=== PATIENT | male | born 1950 | race Caucasian/White ===

== ENCOUNTER 2018-04-21 16:26 | Emergency (ER) | payer BC, MEDICARE ==
[2018-04-21 16:31] VITALS: TEMP 97.4
[2018-04-21] MEDS ORDERED: SODIUM CHLORIDE 0.9% 500 ML 500 ML IV STA (16:42)
[2018-04-21] MEDS ORDERED: SODIUM CHLORIDE 0.9% 1,000 ML IV STA (16:42)
--- NOTE | 2018-04-21 17:09 | XR ---
EXAMINATION TYPE: XR chest 2V DATE OF EXAM: 04/21/2018 COMPARISON: NONE HISTORY: Dizziness weakness TECHNIQUE: Frontal and lateral views of the chest are obtained. FINDINGS: There is poor inspiration. Lungs are clear of infiltrate. Costophrenic angles are clear. H eart and mediastinum are within normal limits. Bony thorax is intact. IMPRESSION: No active cardiopulmonary disease.
[2018-04-21 17:16] LABS: Basophils % (A) 1 %; Eosinophils # (A) 0.1 k/uL (0-0.7); Eosinophils % (A) 3 %; HGB 14.5 gm/dL (13.0-17.5); Lymphocytes # (A) 1.9 k/uL (1.0-4.8); Lymphocytes % (A) 34 %; MCH 29.6 pg (25.0-35.0); MCHC 32.3 g/dL (31.0-37.0); MCV 91.7 fL (80.0-100.0); Mean Platelet Volume 6.8; Monocytes # (A) 0.4 k/uL (0-1.0); Monocytes % (A) 7 %; Neutrophils # (A) 2.9 k/uL (1.3-7.7); Neutrophils % (A) 53 %; Platelet Count 198 k/uL (150-450); RBC 4.91 m/uL (4.30-5.90); RDW 12.9 % (11.5-15.5); WBC 5.5 k/uL (3.8-10.6)
[2018-04-21 17:23] LABS: Albumin 4.3 g/dL (3.5-5.0); Calcium 9.1 mg/dL (8.4-10.2); Magnesium 1.7 mg/dL (1.6-2.3); Phosphorus 3.2 mg/dL (2.5-4.5); Potassium 4.5 mmol/L (3.5-5.1); Total Bilirubin 0.5 mg/dL (0.2-1.3); Total Protein 7.8 g/dL (6.3-8.2)
[2018-04-21 17:36] LABS: Creatine Kinase 206 U/L (55-170)
[2018-04-21 17:48] LABS: Creatine Kinase MB 2.9 ng/mL (0.0-2.4); Troponin I <0.012 ng/mL (0.000-0.034)
[2018-04-21 17:52] LABS: INR 1.1 (<1.2); Partial Thromboplastin Time 24.1 sec (22.0-30.0); Prothrombin Time 10.5 sec (9.0-12.0)
[2018-04-21 18:13] LABS: Appearance,Urine Clear (Clear); Bilirubin,Urine Negative (Negative); Blood,Urine Negative (Negative); Color,Urine Light Yellow; Glucose,Urine (UA) Negative (Negative); Ketones,Urine Negative (Negative); Leukocyte Esterase,Urine Negative (Negative); Nitrite,Urine Negative (Negative); Protein,Urine Negative (Negative); Specific Gravity,Urine 1.009 (1.001-1.035); Urobilinogen,Urine <2.0 mg/dL (<2.0)
--- NOTE | 2018-04-21 18:21 | ED ---
Dizziness HPI - General Chief Complaint: Dizziness Stated Complaint: dizziness Time Seen by Provider: 04/21/18 16:32 Source: patient, EMS Mode of arrival: EMS Limitations: no limitations - History of Present Illness Initial Comments: This is a 67-year-old male to the ER for evaluation. Patient presents today with vertiginous symptoms. Patient has dizziness with position change started today. No recent similar issues, no headaches. No head trauma. No fevers. Patient denies any hearing loss or pain. Patient does admit to significant dizziness when walking as well. Symptoms seem to be 3 sudden onset, no nausea or vomiting. Prior history of heart disease no prior history of CVA MD Complaint: dizziness, other (Vertigo) -: days(s) (1) Timing: sudden onset Description: sense of movement, "room spinning", off-balance, difficulty walking History of Same: No History of Trauma: No Severity: moderate Improves With: remaining still Worsens With: position Associated Symptoms: denies other symptoms - Related Data Home Medications Medication Instructions Recorded Confirmed Aspirin EC [Ecotrin Low Dose] 81 mg PO DAILY 04/21/18 04/21/18 Omeprazole [PriLOSEC] 20 mg PO DAILY 04/21/18 04/21/18 Tamsulosin HCl [Flomax] 0.4 mg PO BID 04/21/18 04/21/18 Triamcinolone Acetonide [Nasacort] 1 - 2 spray EA NOSTRIL BID PRN 04/21/1804/21 diphenhydrAMINE HCL [Benadryl] 25 - 50 mg PO Q6H PRN 04/21/18 04/21/18 Allergies Allergy/AdvReac Type Severity Reaction Status Date / Time No Known Allergies Allergy Verified 04/21/18 16:58 Review of Systems ROS Statement: Those systems with pertinent positive or pertinent negative responses have been documented in the HPI. ROS Other: All systems not noted in ROS Statement are negative. Past Medical History Past Medical History: Cancer Additional Past Medical History / Comment(s): colorectal cancer jun 2014, History of Any Multi-Drug Resistant Organisms: None Reported Additional Past Surgical History / Comment(s): rectal tumor removed, colostomy Past Psychological History: No Psychological Hx Reported Smoking Status: Former smoker Past Alcohol Use History: Daily Past Drug Use History: None Reported General Exam - General Exam Comments Initial Comments: NIH of 0, finger-nose and heel mayo are negative Limitations: no limitations General appearance: alert, in no apparent distress Head exam: Present: atraumatic, normocephalic, normal inspection Eye exam: Present: normal appearance, PERRL, EOMI. Absent: scleral icterus, conjunctival injection, periorbital swelling ENT exam: Present: normal exam, mucous membranes moist Neck exam: Present: normal inspection. Absent: tenderness, meningismus, lymphadenopathy Respiratory exam: Present: normal lung sounds bilaterally. Absent: respiratory distress, wheezes, rales, rhonchi, stridor Cardiovascular Exam: Present: regular rate, normal rhythm, normal heart sounds. Absent: systolic murmur, diastolic murmur, rubs, gallop, clicks GI/Abdominal exam: Present: soft, normal bowel sounds. Absent: distended, tenderness, guarding, rebound, rigid Extremities exam: Present: normal inspection, full ROM, normal capillary refill. Absent: tenderness, pedal edema, joint swelling, calf tenderness Back exam: Present: normal inspection Neurological exam: Present: alert, oriented X3, CN II-XII intact Psychiatric exam: Present: normal affect, normal mood Skin exam: Present: warm, dry, intact, normal color. Absent: rash Course Vital Signs 04/21/18 04/21/18 16:27 18:46 Temperature 97.4 F L Pulse Rate 70 68 Respiratory 20 18 Rate Blood Pressure 154/71 144/69 O2 Sat by Pulse 96 97 Oximetry - Reevaluation(s) Reevaluation #1: 04/21/18 19:16 Medical records thoroughly reviewed Reevaluation #2: 04/21/18 19:16 Patient is able to actively without ataxia EKG Findings - EKG Comments: EKG Findings:: EKG shows sinus rhythm rate of 63, VT 160, QRS 90, QTc 411 Medical Decision Making - Medical Decision Making 67 male the ER for evaluation of difficulty with dizziness, room spinning and vertigo symptoms. No ataxia, currently. CT is negative patient can be discharged home - Lab Data Result diagrams: 04/21/18 16:40 04/21/18 16:40 Lab Results 04/21/18 04/21/18 04/21/18 Range/Units 16:40 16:40 16:40 WBC 5.5 (3.8-10.6) k/uL RBC 4.91 (4.30-5.90) m/uL Hgb 14.5 (13.0-17.5) gm/dL Hct 45.0 (39.0-53.0) % MCV 91.7 (80.0-100.0) fL MCH 29.6 (25.0-35.0) pg MCHC 32.3 (31.0-37.0) g/dL RDW 12.9 (11.5-15.5) % Plt Count 198 (150-450) k/uL Neutrophils % 53 % Lymphocytes % 34 % Monocytes % 7 % Eosinophils % 3 % Basophils % 1 % Neutrophils # 2.9 (1.3-7.7) k/uL Lymphocytes # 1.9 (1.0-4.8) k/uL Monocytes # 0.4 (0-1.0) k/uL Eosinophils # 0.1 (0-0.7) k/uL Basophils # 0.0 (0-0.2) k/uL PT (9.0-12.0) sec INR (<1.2) APTT (22.0-30.0) sec Sodium 138 (137-145) mmol/L Potassium 4.5 (3.5-5.1) mmol/L Chloride 105 (98-107) mmol/L Carbon Dioxide 22 (22-30) mmol/L Anion Gap 11 mmol/L BUN 24 H (9-20) mg/dL Creatinine 1.17 (0.66-1.25) mg/dL Est GFR (CKD-EPI)AfAm 73 (>60 ml/min/1.73 sqM) Est GFR (CKD-EPI)NonAf 63 (>60 ml/min/1.73 sqM) Glucose 101 H (74-99) mg/dL Calcium 9.1 (8.4-10.2) mg/dL Phosphorus 3.2 (2.5-4.5) mg/dL Magnesium 1.7 (1.6-2.3) mg/dL Total Bilirubin 0.5 (0.2-1.3) mg/dL AST 32 (17-59) U/L ALT 28 (21-72) U/L Alkaline Phosphatase 71 (38-126) U/L Total Creatine Kinase 206 H (55-170) U/L CK-MB (CK-2) 2.9 H (0.0-2.4) ng/mL CK-MB (CK-2) Rel Index 1.4 Troponin I <0.012 (0.000-0.034) ng/mL Total Protein 7.8 (6.3-8.2) g/dL Albumin 4.3 (3.5-5.0) g/dL Urine Color Urine Appearance (Clear) Urine pH (5.0-8.0) Ur Specific [place] (1.001-1.035) Urine Protein (Negative) Urine Glucose (UA) (Negative) Urine Ketones (Negative) Urine Blood (Negative) Urine Nitrite (Negative) Urine Bilirubin (Negative) Urine Urobilinogen (<2.0) mg/dL Ur Leukocyte Esterase (Negative) 04/21/18 04/21/18 Range/Units 16:40 17:47 WBC (3.8-10.6) k/uL RBC (4.30-5.90) m/uL Hgb (13.0-17.5) gm/dL Hct (39.0-53.0) % MCV (80.0-100.0) fL MCH (25.0-35.0) pg MCHC (31.0-37.0) g/dL RDW (11.5-15.5) % Plt Count (150-450) k/uL Neutrophils % % Lymphocytes % % Monocytes % % Eosinophils % % Basophils % % Neutrophils # (1.3-7.7) k/uL Lymphocytes # (1.0-4.8) k/uL Monocytes # (0-1.0) k/uL Eosinophils # (0-0.7) k/uL Basophils # (0-0.2) k/uL PT 10.5 (9.0-12.0) sec INR 1.1 (<1.2) APTT 24.1 (22.0-30.0) sec Sodium (137-145) mmol/L Potassium (3.5-5.1) mmol/L Chloride (98-107) mmol/L Carbon Dioxide (22-30) mmol/L Anion Gap mmol/L BUN (9-20) mg/dL Creatinine (0.66-1.25) mg/dL Est GFR (CKD-EPI)AfAm (>60 ml/min/1.73 sqM) Est GFR (CKD-EPI)NonAf (>60 ml/min/1.73 sqM) Glucose (74-99) mg/dL Calcium (8.4-10.2) mg/dL Phosphorus (2.5-4.5) mg/dL Magnesium (1.6-2.3) mg/dL Total Bilirubin (0.2-1.3) mg/dL AST (17-59) U/L ALT (21-72) U/L Alkaline Phosphatase (38-126) U/L Total Creatine Kinase (55-170) U/L CK-MB (CK-2) (0.0-2.4) ng/mL CK-MB (CK-2) Rel Index Troponin I (0.000-0.034) ng/mL Total Protein (6.3-8.2) g/dL Albumin (3.5-5.0) g/dL Urine Color Light Yellow Urine Appearance Clear (Clear) Urine pH 5.0 (5.0-8.0) Ur Specific [place] 1.009 (1.001-1.035) Urine Protein Negative (Negative) Urine Glucose (UA) Negative (Negative) Urine Ketones Negative (Negative) Urine Blood Negative (Negative) Urine Nitrite Negative (Negative) Urine Bilirubin Negative (Negative) Urine Urobilinogen <2.0 (<2.0) mg/dL Ur Leukocyte Esterase Negative (Negative) - Radiology Data Radiology results: report reviewed (CT brain chest x-ray are negative for acute disease), image reviewed Disposition Clinical Impression: Benign paroxysmal positional vertigo Disposition: HOME SELF-CARE Condition: Good Instructions: Vertigo (ED) Is patient prescribed a controlled substance at d/c from ED?: No Referrals: Justin Vincent DO [Primary Care Provider] - 1-2 days
[2018-04-21 18:47] VITALS: RESP 18
--- NOTE | 2018-04-21 19:14 | CT ---
EXAMINATION TYPE: CT brain wo con DATE OF EXAM: 04/21/2018 COMPARISON: None HISTORY: Dizziness. CT DLP: 1082.10 mGycm Automated exposure control for dose reduction was used. FINDINGS: There is some cerebral cortical atrophy. There is no mass effect nor midline shift. There is no sign of intracranial hemorrhage. The calvarium is intact. IMPRESSION: MILD ATROPHY. NO ACUTE INTRACRANIAL ABNORMALITY.
[2018-04-21 20:12] VITALS: BP 150/70; PULSE 82
== END 2018-04-21 20:05 | disposition home or self-care (01) ==
LOC: EC 16:26
DX: H81.10 Benign paroxysmal vertigo, unspecified ear (principal); R29.700 NIHSS score 0; Z87.891 Personal history of nicotine dependence; Z79.82 Long term (current) use of aspirin; Z79.899 Other long term (current) drug therapy; Z85.038 Personal history of other malignant neoplasm of large intestine; Z85.048 Personal history of other malignant neoplasm of rectum, rectosigmoid junction, and anus; Z98.890 Other specified postprocedural states; Z93.3 Colostomy status
CPT/HCPCS: 36415; 70450; 71046; 80053; 81003; 82550; 82553; 83735; 84100; 84484; 85025; 85610; 85730; 87086; 93005; 96360; 96361; 99285

== ENCOUNTER → 2018-05-12 | Outpatient (CLI) | payer MEDICARE | END | disposition home or self-care (01) | LOC: LABWHC1 16:39 | PROVIDERS: ATTEND Family Medicine | DX: M79.662 Pain in left lower leg (principal); M79.661 Pain in right lower leg; R51 Headache | CPT/HCPCS: 36415; 85379 ==

== ENCOUNTER → 2018-05-27 | Outpatient (CLI) | payer MEDICARE ==
--- NOTE | 2018-05-27 13:55 | MR ---
EXAMINATION TYPE: MR brain wo con DATE OF EXAM: 05/27/2018 7:16 AM COMPARISON: NONE HISTORY: Headache FINDINGS: The ventricles, basal cisterns and sulci overlying the cerebral convexities are mildly enlarged. There is evidence of mild periventricular white matter ischemic demyelination. Remote deep white matter insults are also noted. No acute edema is seen on diffusion weighted imaging. There is no evidence for midline shift or mass effect. Acute intracranial hemorrhage or extra-axial collection is not evident. The paranasal sinuses and mastoid air cells are well-aerated. IMPRESSION: Age-related atrophic and chronic small vessel ischemic change. No acute intracranial process at this time.
== END | disposition home or self-care (01) ==
LOC: RADMRIMAIN 06:48
PROVIDERS: ATTEND Family Medicine
DX: I67.82 Cerebral ischemia (principal); G31.9 Degenerative disease of nervous system, unspecified
CPT/HCPCS: 70551

== ENCOUNTER 2020-01-16 18:15 | Emergency (ER) | payer MEDICARE ==
[2020-01-16 18:19] VITALS: RESP 16; TEMP 98.3
[2020-01-16] MEDS ORDERED: LIDOCAINE URO-JET JELLY 2% 5 ML KIT URETHRAL ONE ×2 (18:39→19:03)
--- NOTE | 2020-01-16 18:39 | ED ---
Male Urogenital HPI - General Chief complaint: Urogenital Stated complaint: Unable to void Time Seen by Provider: 01/16/20 18:22 Source: patient, RN notes reviewed Mode of arrival: ambulatory Limitations: no limitations - History of Present Illness Initial comments: This is a 69-year-old male who presents with complaints of inability to urinate. He states she's been having trouble for last day or so. He does complain some penile pain. She has frequency swallowing blood in his urine no fevers chills sweats no history kidney stones a history of prostatism does have a history of colon cancer with resection and colostomy. He also states he does have an appointment to see a urologist in 3 days. Additionally the patient does state that he had a muscle flap taken from the left leg over to the left buttock area. - Related Data Home Medications Medication Instructions Recorded Confirmed Aspirin EC [Ecotrin Low Dose] 81 mg PO DAILY 04/21/18 01/16/20 Allergies Allergy/AdvReac Type Severity Reaction Status Date / Time No Known Allergies Allergy Verified 01/16/20 20:46 Review of Systems ROS Statement: Those systems with pertinent positive or pertinent negative responses have been documented in the HPI. ROS Other: All systems not noted in ROS Statement are negative. Past Medical History Past Medical History: Cancer Additional Past Medical History / Comment(s): colorectal cancer jun 2014, History of Any Multi-Drug Resistant Organisms: None Reported Additional Past Surgical History / Comment(s): rectal tumor removed, colostomy Past Psychological History: No Psychological Hx Reported Smoking Status: Former smoker Past Alcohol Use History: Daily Past Drug Use History: None Reported General Exam - General Exam Comments Initial Comments: Is a well-developed well-nourished awake alert oriented times 3 male Limitations: no limitations General appearance: alert, anxious, in distress Head exam: Present: atraumatic, normocephalic, normal inspection Eye exam: Present: normal appearance, PERRL, EOMI. Absent: scleral icterus, conjunctival injection, periorbital swelling ENT exam: Present: normal exam, mucous membranes moist Neck exam: Present: normal inspection. Absent: tenderness, meningismus, lymphadenopathy Respiratory exam: Present: normal lung sounds bilaterally. Absent: respiratory distress, wheezes, rales, rhonchi, stridor Cardiovascular Exam: Present: normal rhythm, tachycardia, normal heart sounds. Absent: systolic murmur, diastolic murmur, rubs, gallop, clicks GI/Abdominal exam: Present: soft, tenderness (Some tenderness palpation of the suprapubic region consistent with bladder distention colostomy present appears be functional patient is uncircumcised. Some tenderness palpation of the glans penis.), normal bowel sounds. Absent: distended, guarding, rebound, rigid Extremities exam: Present: normal inspection, full ROM, normal capillary refill. Absent: tenderness, pedal edema, joint swelling, calf tenderness Back exam: Present: normal inspection Neurological exam: Present: alert, oriented X3, CN II-XII intact Psychiatric exam: Present: normal affect, normal mood Skin exam: Present: warm, dry, intact, normal color. Absent: rash Course Vital Signs 01/16/20 01/16/20 18:16 20:48 Temperature 98.3 F Pulse Rate 104 H 69 Respiratory 16 16 Rate Blood Pressure 158/87 131/77 O2 Sat by Pulse 98 98 Oximetry - Reevaluation(s) Reevaluation #1: 01/16/20 20:18 Catheterization and was unsuccessful however the patient was able to pass a clot material with decompression of his bladder. 01/16/20 20:18 The material suspicious for a cast Medical Decision Making - Medical Decision Making The patient did get relief after passing the tissue through the meatus. The patient will be discharged and keep his urology follow-up. - Lab Data Result diagrams: 01/16/20 19:57 01/16/20 19:57 Lab Results 01/16/20 01/16/20 01/16/20 Range/Units 19:57 19:57 19:58 WBC 7.2 (3.8-10.6) k/uL RBC 4.86 (4.30-5.90) m/uL Hgb 14.4 (13.0-17.5) gm/dL Hct 44.1 (39.0-53.0) % MCV 90.7 (80.0-100.0) fL MCH 29.6 (25.0-35.0) pg MCHC 32.7 (31.0-37.0) g/dL RDW 12.9 (11.5-15.5) % Plt Count 206 (150-450) k/uL Neutrophils % 70 % Lymphocytes % 19 % Monocytes % 7 % Eosinophils % 1 % Basophils % 0 % Neutrophils # 5.1 (1.3-7.7) k/uL Lymphocytes # 1.4 (1.0-4.8) k/uL Monocytes # 0.5 (0-1.0) k/uL Eosinophils # 0.1 (0-0.7) k/uL Basophils # 0.0 (0-0.2) k/uL Sodium 138 (137-145) mmol/L Potassium 4.8 (3.5-5.1) mmol/L Chloride 106 (98-107) mmol/L Carbon Dioxide 23 (22-30) mmol/L Anion Gap 9 mmol/L BUN 20 (9-20) mg/dL Creatinine 1.17 (0.66-1.25) mg/dL Est GFR (CKD-EPI)AfAm 72 (>60 ml/min/1.73 sqM) Est GFR (CKD-EPI)NonAf 62 (>60 ml/min/1.73 sqM) Glucose 102 H (74-99) mg/dL Calcium 9.4 (8.4-10.2) mg/dL Total Bilirubin 0.3 (0.2-1.3) mg/dL AST 23 (17-59) U/L ALT 18 (4-49) U/L Alkaline Phosphatase 71 (38-126) U/L Total Protein 7.1 (6.3-8.2) g/dL Albumin 4.3 (3.5-5.0) g/dL Urine Color Light Yellow Urine Appearance Clear (Clear) Urine pH 5.5 (5.0-8.0) Ur Specific [place] 1.009 (1.001-1.035) Urine Protein Negative (Negative) Urine Glucose (UA) Negative (Negative) Urine Ketones Negative (Negative) Urine Blood Trace H (Negative) Urine Nitrite Negative (Negative) Urine Bilirubin Negative (Negative) Urine Urobilinogen <2.0 (<2.0) mg/dL Ur Leukocyte Esterase Moderate H (Negative) Urine RBC 5 (0-5) /hpf Urine WBC 4 (0-5) /hpf Ur Squamous Epith Cells <1 (0-4) /hpf Urine Bacteria Rare H (None) /hpf Urine Mucus Rare H (None) /hpf - Radiology Data Radiology results: report reviewed (I did review the imaging and report no evidence of acute findings but report), image reviewed Disposition Clinical Impression: Acute urinary retention Disposition: HOME SELF-CARE Condition: Good Instructions (If sedation given, give patient instructions): Urinary Tract Infection in Men (ED) Is patient prescribed a controlled substance at d/c from ED?: No Referrals: Justin Vincent DO [Primary Care Provider] - 1-2 days Sherman Malloy MD [STAFF PHYSICIAN] - 1-2 days
[2020-01-16 20:12] LABS: Basophils % (A) 0 %; Eosinophils # (A) 0.1 k/uL (0-0.7); Eosinophils % (A) 1 %; HCT 44.1 % (39.0-53.0); HGB 14.4 gm/dL (13.0-17.5); Lymphocytes # (A) 1.4 k/uL (1.0-4.8); Lymphocytes % (A) 19 %; MCH 29.6 pg (25.0-35.0); MCHC 32.7 g/dL (31.0-37.0); MCV 90.7 fL (80.0-100.0); Mean Platelet Volume 7.5; Monocytes # (A) 0.5 k/uL (0-1.0); Monocytes % (A) 7 %; Neutrophils # (A) 5.1 k/uL (1.3-7.7); Neutrophils % (A) 70 %; Platelet Count 206 k/uL (150-450); RBC 4.86 m/uL (4.30-5.90); RDW 12.9 % (11.5-15.5); WBC 7.2 k/uL (3.8-10.6)
[2020-01-16 20:18] LABS: Appearance,Urine Clear (Clear); Bacteria,Urine Rare /hpf; Bilirubin,Urine Negative (Negative); Blood,Urine Trace (Negative); Color,Urine Light Yellow; Glucose,Urine (UA) Negative (Negative); Ketones,Urine Negative (Negative); Leukocyte Esterase,Urine Moderate (Negative); Mucus,Urine Rare /hpf; Nitrite,Urine Negative (Negative); PH, Urine 5.5 (5.0-8.0); Protein,Urine Negative (Negative); RBC,Urine 5 /hpf (0-5); Specific Gravity,Urine 1.009 (1.001-1.035); Squamous Epithelial Cell,Urine <1 /hpf (0-4); Urobilinogen,Urine <2.0 mg/dL (<2.0); WBC,Urine 4 /hpf (0-5)
[2020-01-16 20:21] LABS: Albumin 4.3 g/dL (3.5-5.0); Calcium 9.4 mg/dL (8.4-10.2); Potassium 4.8 mmol/L (3.5-5.1); Total Bilirubin 0.3 mg/dL (0.2-1.3); Total Protein 7.1 g/dL (6.3-8.2)
--- NOTE | 2020-01-16 20:46 | CT ---
EXAMINATION TYPE: CT abdomen pelvis wo con DATE OF EXAM: 01/16/2020 COMPARISON: 03/31/2016 HISTORY: flank pain, hematuria CT DLP: 767.6 mGycm Automated exposure control for dose reduction was used. Images were obtained without contrast from the diaphragm to the floor the pelvis. There is some minimal fibrotic change at the lung bases. There is no pleural effusion. Heart size is normal. There is no pericardial effusion. Liver spleen stomach pancreas appear intact. Bile ducts are not dilated. Gallbladder appears normal. There is no adrenal mass. Kidneys have normal size. There is no hydronephrosis. Ureters are not dilat ed. There is no retroperitoneal adenopathy. Bladder distends smoothly. There is no inguinal hernia. T here is no free fluid in the pelvis. Appendix is posterior and appears normal. There is no mesenteric edema. There is no ascites or free a ir. There is no sign of a bowel obstruction. There is left lower quadrant colostomy. There is no evid ence of pelvic mass. There is no free fluid in the pelvis. There is no mesenteric edema. There is no ascites or free air. There is no bowel obstruction. Prostat e measures 4.3 cm. Lumbar vertebra have normal alignment. There is disc space narrowing at L4-5 L5-S1 with vacuum disc and spur formation. There is no lumbar compression fracture. The bony pelvis appear s intact. There is 2 cm umbilical hernia that contains fat unchanged. There is a 3 x 2 cm area of fat stranding medial to the left ischial tubercle. Could relate to some focal cellulitis. IMPRESSION: No acute abnormality within the abdomen pelvis. Normal appendix. Possible area of focal cellulitis at the medial left ischial tubercle is a change compared to old exam..
[2020-01-16 20:49] VITALS: BP 131/77; PULSE 69
== END 2020-01-16 21:02 | disposition home or self-care (01) ==
LOC: EC 18:15
DX: R33.9 Retention of urine, unspecified (principal); R31.9 Hematuria, unspecified; R00.0 Tachycardia, unspecified; Z87.891 Personal history of nicotine dependence; Z85.038 Personal history of other malignant neoplasm of large intestine; Z93.3 Colostomy status
CPT/HCPCS: 36415; 74176; 80053; 81001; 85025; 99284

== ENCOUNTER 2021-06-13 04:45 | Emergency (ER) | payer MEDICARE ==
[2021-06-13 04:55] VITALS: BP 132/79; PULSE 85; RESP 17; TEMP 98.5
--- NOTE | 2021-06-13 06:37 | XR ---
EXAMINATION TYPE: XR chest 2V DATE OF EXAM: 06/13/2021 COMPARISON: Prior chest x-ray April 21, 2018 HISTORY: Congestion. TECHNIQUE: Frontal and lateral views of the chest are obtained. FINDINGS: There is some chronic parenchymal changes bilaterally without suspicious focal air space o pacity, pleural effusion, or pneumothorax seen. The cardiac silhouette size is stable and upper limi ts of normal. The osseous structures are intact. IMPRESSION: No acute process. No significant change from prior.
--- NOTE | 2021-06-13 06:46 | ED ---
URI HPI - General Chief Complaint: Upper Respiratory Infection Stated Complaint: Congestion Time Seen by Provider: 06/13/21 05:49 Source: patient, EMS Mode of arrival: EMS - History of Present Illness Initial Comments: A she is a 70-year-old male that presents to the emergency department complaining of nasal and sinus congestion for the past several weeks. Patient notes he does have seasonal ALLERGIES. He notes that around this time year when he is inside more often he gets stuffy. He notes that his ALLERGIES get worse with dust. Patient notes that his symptoms get worse at night when he is lying down and has postnasal drip. He notes that he woke up this morning and was coughing and choking on some mucus. Patient denied any other symptoms or complaints this time. He was otherwise well-appearing. Patient does know he takes Nasacort for his ALLERGIES. He denied any chest pain shortness of breath headache nausea vomiting diarrhea constipation fever fatigue chills. - Related Data Home Medications Medication Instructions Recorded Confirmed Aspirin EC [Ecotrin Low Dose] 81 mg PO DAILY 04/21/18 01/16/20 ALPRAZolam [Xanax] 1 mg PO TID PRN 01/16/20 01/16/20 HYDROcodone/APAP 10-325MG [[place] 1 tab PO TID PRN 01/16/20 01/16/20 10-325] Multivitamins, Thera [Multivitamin 1 tab PO DAILY 01/16/20 01/16/20 (formulary)] Omeprazole Magnesium [PriLOSEC OTC] 20 mg PO DAILY PRN 01/16/20 01/16/20 Previous Rx's Medication Instructions Recorded Famotidine [Pepcid] 20 mg PO DAILY 30 Days #30 tablet 06/13/21 Loratadine-Pseudoeph 10-240 mg 1 tab PO DAILY 30 Days #30 tab 06/13/21 [Claritin-D 24 Hour] Allergies Allergy/AdvReac Type Severity Reaction Status Date / Time No Known Allergies Allergy Verified 01/16/20 20:46 Review of Systems ROS Statement: Those systems with pertinent positive or pertinent negative responses have been documented in the HPI. ROS Other: All systems not noted in ROS Statement are negative. Past Medical History Past Medical History: Cancer Additional Past Medical History / Comment(s): colorectal cancer jun 2014, History of Any Multi-Drug Resistant Organisms: None Reported Additional Past Surgical History / Comment(s): rectal tumor removed, colostomy Past Psychological History: No Psychological Hx Reported Past Alcohol Use History: Daily Past Drug Use History: None Reported General Exam General appearance: alert, in no apparent distress Head exam: Present: atraumatic, normocephalic, normal inspection Eye exam: Present: normal appearance, PERRL, EOMI. Absent: scleral icterus, conjunctival injection, periorbital swelling ENT exam: Present: normal exam, mucous membranes moist Neck exam: Present: normal inspection, full ROM. Absent: tenderness, lymphadenopathy Respiratory exam: Present: normal lung sounds bilaterally. Absent: respiratory distress, wheezes, rales, rhonchi, stridor Cardiovascular Exam: Present: regular rate, normal rhythm, normal heart sounds. Absent: systolic murmur, diastolic murmur, rubs, gallop, clicks GI/Abdominal exam: Present: soft, normal bowel sounds. Absent: distended, tenderness, guarding, rebound, rigid Extremities exam: Present: normal inspection, full ROM, normal capillary refill. Absent: tenderness, pedal edema, joint swelling, calf tenderness Neurological exam: Present: alert, oriented X3 Psychiatric exam: Present: normal affect, normal mood Skin exam: Present: warm, dry, intact, normal color. Absent: rash Course Vital Signs 06/13/21 04:49 Temperature 98.5 F Pulse Rate 85 Respiratory 17 Rate Blood Pressure 132/79 Medical Decision Making - Medical Decision Making 70-year-old male complaining of nasal and sinus congestion for the past several days. Covid test, chest x-ray ordered. Chest x-ray shows no acute process. No change from prior. Covid test negative. Patient most likely experiencing ALLERGIC rhinitis worsened by change in weather and being inside. Patient was informed of this and he was instructed to continue taking his ALLERGY medication follow-up with his primary care. Patient is agreeable with discharge home. Vital signs are stable. case discussed with Dr. Goldsmith, patient discharge home. - Lab Data Lab Results 06/13/21 Range/Units 06:19 Coronavirus (PCR) Not Detected (Not Detectd) Disposition Clinical Impression: Allergic rhinitis, Sinus congestion, PND (post-nasal drip) Disposition: HOME SELF-CARE Condition: Stable Instructions (If sedation given, give patient instructions): Rhinosinusitis (ED) Additional Instructions: Please return to the Emergency Department if symptoms worsen or any other concerns. Follow with primary care in 1-2 days. Continue ALLERGY medication as prescribed. Pepcid and Claritin as prescribed. Prescriptions: Loratadine-Pseudoeph 10-240 mg [Claritin-D 24 Hour] 1 tab PO DAILY 30 Days #30 tab Famotidine [Pepcid] 20 mg PO DAILY 30 Days #30 tablet Is patient prescribed a controlled substance at d/c from ED?: No Referrals: Justin Vincent DO [Primary Care Provider] - 1-2 days Time of Disposition: 07:22
== END 2021-06-13 08:12 | disposition home or self-care (01) ==
LOC: EC 04:45
DX: J30.9 Allergic rhinitis, unspecified (principal); R09.82 Postnasal drip; Z20.822 Contact with and (suspected) exposure to COVID-19
CPT/HCPCS: 71046; 87635; 99283

== ENCOUNTER → 2022-10-20 | Outpatient (CLI) | payer MEDICARE ==
--- NOTE | 2022-10-21 19:12 | MR ---
EXAMINATION TYPE: MR shoulder RT wo con DATE OF EXAM: 10/20/2022 COMPARISON: X-ray 10/06/2022 HISTORY: Pain TECHNIQUE: Multiplanar, multisequence imaging of the right shoulder is performed without contrast. FINDINGS: There is severe hypertrophic arthropathy of the AC joint. There is mass effect and impingem ent upon the supraspinatus tendon. There is no evidence of through thickness tear of the supraspinatus tendon. There is some mild increa sed signal throughout the distal 1.8 cm the tendon compatible tendinopathy. At the insertion there is a tiny 5 mm partial tear without retraction. There is abnormal signal involving the posterior fibers of the insertion of the infraspinatus tendon measuring approximately 7 mm compatible with a partial through thickness tear. Subscapularis tendon intact. Mild amount of fluid surrounding the bicipital tendon which appears normally situated within the bici pital groove. Biceps anchor intact. Intracapsular portion of the tendon normal. There is ill definition of an abnormal appearance of the humeral insertion of the inferior glenohumer al ligament suspicious for avulsion of the humeral attachment of the glenohumeral ligament. There als o is abnormal appearance of the inferior labrum at this level. IMPRESSION: 1. Findings suspicious for for HAGL lesion with humeral avulsion of the inferior glenohumeral ligamen t. Suspect an associated inferior labral tear. 2. Mild to moderate tendinopathy diffusely of the distal margin of the supraspinatus tendon with a pa rtial 2 mm tear at the insertion. 3. Tendinopathy of the intact infraspinatus tendon distally with findings suspicious of a partial thr ough thickness tear of the insertion of the posterior fibers of the tendon measuring approximately 7 mm.
== END | disposition home or self-care (01) ==
LOC: RADMRIMAIN 11:01
PROVIDERS: ATTEND Orthopaedic Surgery
DX: M75.111 Incomplete rotator cuff tear or rupture of right shoulder, not specified as traumatic (principal); M67.813 Other specified disorders of tendon, right shoulder

== ENCOUNTER 2022-12-03 05:55 | Day surgery (SDC) | payer MEDICARE, BC ==
[2022-12-01 10:59] VITALS: BMI 28.7
--- NOTE | 2022-12-02 22:11 | HP ---
HISTORY AND PHYSICAL DATE OF SURGERY: 12/03/2022. HISTORY OF PRESENT ILLNESS: Beny More is a 72-year-old gentleman seen with progressive right shoulder pain. We discussed options for treatment. He elected to proceed with right shoulder arthroscopy. Consent regarding the procedure was obtained. Medical clearance was provided by Dr. Justin Vincent. PAST MEDICAL HISTORY: Noncontributory. PAST SURGICAL HISTORY: Tonsillectomy, colostomy. DAILY MEDICATIONS: 1. [place]. 2. Xanax. ALLERGIES: None. SOCIAL HISTORY: Denies tobacco use. PHYSICAL EVALUATION OF THE RIGHT SHOULDER: Flexion is 120 degrees, abduction is 110 degrees, external rotation is 30 degrees with pain and weakness. He is tender along the anterior lateral acromion and rotator cuff insertion site. Impingement sign is positive at 80 degrees. Drop-arm sign is positive. Distal neurovascular exam is intact. RADIOGRAPHS: Radiographs of the right shoulder revealed a type 3 acromion along with acromioclavicular joint osteoarthritis. MRI right shoulder revealed a partial rotator cuff tear, labral tear, and severe acromioclavicular joint osteoarthritis. IMPRESSION: 1. Right shoulder impingement with rotator cuff tear. 2. Right shoulder labral tear. 3. Right shoulder acromioclavicular joint osteoarthritis. PLAN: Right shoulder arthroscopy with subacromial decompression, arthroscopic rotator cuff repair, Khushi procedure and debridement. MMODL / IJN: [id number] /
[2022-12-03] MEDS ORDERED: ONDANSETRON 4 MG/2 ML VIAL IVP ONE (06:09)
[2022-12-03] MEDS ORDERED: LIDOCAINE 1% (10MG/ML) FOR IV START INTRADERMA PRN (06:09)
[2022-12-03] MEDS ORDERED: HYDROmorphone 0.5 MG/0.5 ML SYRINGE IVP PRN (06:09)
[2022-12-03] MEDS ORDERED: MIDAZOLAM 2 MG/2 ML VIAL IV PRN (06:09)
[2022-12-03] MEDS ORDERED: DEXAMETHASONE SOD PHOSPHATE 4 MG/ML 1 ML VIAL IV ONE (06:09)
[2022-12-03] MEDS: LACTATED RINGERS 1,000 ML IV SCH ×2 (06:19→09:55)
[2022-12-03] MEDS ORDERED: MIDAZOLAM 2 MG/2 ML VIAL IVP ONE (07:01)
[2022-12-03] MEDS ORDERED: LIDOCAINE 2% INJ 20 MG/ML (2 ML VIAL) ONE (07:22)
[2022-12-03] MEDS ORDERED: DEXAMETHASONE SOD PHOSPHATE 4 MG/ML 1 ML VIAL ONE (07:22)
[2022-12-03] MEDS ORDERED: PROPOFOL 10 MG/ML 20 ML VIAL IV ONE (07:22)
[2022-12-03] MEDS ORDERED: LIDOCAINE 4% LTA KIT (4 ML) TOPICAL ONE (07:22)
[2022-12-03] MEDS ORDERED: ePHEDrine 50 MG/ML 1 ML VIAL ONE (07:22)
[2022-12-03] MEDS ORDERED: KETOROLAC 15 MG/ML 1 ML VIAL ONE (07:22)
[2022-12-03] MEDS ORDERED: ROPIVACAINE 5 MG/ML 30 ML VIAL ONE (07:22)
[2022-12-03] MEDS ORDERED: SUCCINYLCHOLINE CHLORIDE 200 MG/10 ML VIAL IV ONE (07:22)
[2022-12-03] MEDS ORDERED: fentaNYL (PF) 50 MCG/ML 2 ML AMP ONE (07:22)
[2022-12-03] MEDS ORDERED: MIDAZOLAM 2 MG/2 ML VIAL ONE (07:22)
--- NOTE | 2022-12-03 08:50 | P.OP ---
Date of Procedure: 12/03/22 Preoperative Diagnosis: Right shoulder impingement Postoperative Diagnosis: 1. Right shoulder rotator cuff tear 2. Right shoulder impingement 3. Right shoulder acromioclavicular joint osteoarthritis 4. Right shoulder partial long head biceps tendon tear 5. Right shoulder superficial labral tear Procedure(s) Performed: 1. Right shoulder arthroscopic rotator cuff repair 2. Right shoulder arthroscopic subacromial decompression 3. Right shoulder arthroscopic Khushi procedure 4. Right shoulder arthroscopic biceps tenotomy 5. Right shoulder arthroscopic debridement labral tear Implants: 1Arthrex 4.75 swivel lock anchor Anesthesia: GETA, regional (Interscalene block) Surgeon: Mateo Mays [employer] Officer #1: Tremaine Juárez Estimated Blood Loss (ml): 11 Pathology: none sent Condition: stable Disposition: PACU Indications for Procedure: 72-year-old gentleman who was seen with progressive right shoulder pain. After having treatment options discussed, he elected to proceed with arthroscopy. Operative Findings: See description of procedure Description of Procedure: Patient underwent an interscalene block by department of anesthesia. The patient was then taken to the operative suite. The patient underwent a general anesthetic by the department of anesthesia. The patient was placed into a lateral position and secured. There was appropriate padding of the bony prominence. Right shoulder was then prepped and draped in normal sterile orthopedic fashion. We placed the extremity in 10 pounds of longitudinal traction. A posterior incision was now made for a posterior working portal site. The trocar and cannula were inserted into the glenohumeral joint. Arthroscopy was initiated. Spinal needle was now inserted anteriorly, to ascertain the anterior working portal site. An incision was now made in that area, a trocar was inserted followed by a probe. There was hyperemia partial tearing long head biceps tendon. There was superficial tearing of the superior labrum. There were mild grade 1 chondromalacia changes about the glenohumeral joint with no osteochondral tears. I performed an arthroscopic biceps tenotomy. I debrided the superficial labral tear getting down to stable tissue. The residual labrum was probed and was found to be stable. Instruments were now removed from glenohumeral joint. Utilizing the posterior working portal site, the trocar and cannula were inserted into the subacromial space. Arthroscopy initiated. I made an incision 2 fingerbreadths lateral to the acromion. I introduced my trocar followed by my ArthroCare ablator. I now began ablating thick subacromial bursal tissue, which exposed the undersurface of the anterior acromion. There was diminished subacromial space. There was a very prominent anterior acromion. A motorized bur was introduced and a subacromial decompression was performed. I also excised some osteophytes off the inferior aspect of the distal clavicle. The AC joint was visualized and noted to be fairly arthritic. The motorized bur was introduced in the anterior portal site and a Khushi procedure was performed without difficulty, decompressing the AC joint nicely. I turned my attention to the rotator cuff. There was a 1.5 cm tear along the distal supraspinatus. I debrided the margins getting down to stable tendon tissue. I abraded the footprint with a motorized bur. With the assistance of Warren YEUNG now passed 3 everted mattress sutures through good bites of rotator cuff tendon. I punched to holes on the footprint area for insertion of an anchor. All 6 limbs of suture were passed through the eyelet of a Arthrex 4.75 swivel lock anchor. I placed the eyelet into the pre-punched hole. I held it in position while Warren YEUNG tensioned all 6 limbs of suture and the satinder the anchor with good fixation noted. All residual suture limbs were now clipped. We had good compression of the tendon along the entire footprint. Instruments now removed from the portal sites. All portal sites were approximated with nylon suture. Sterile dressings were applied followed by a shoulder sling. Tremaine YEUNG assisted in this complex case. The patient was awakened, transferred to a bed, and taken to recovery in stable condition.
[2022-12-03 08:53] VITALS: TEMP 97
[2022-12-03 10:05] VITALS: RESP 18
[2022-12-03 10:23] VITALS: BP 151/70; PULSE 72
--- NOTE | 2022-12-04 06:25 | P.ANPRN ---
Procedure Note - Anesthesia - Nerve Block Performed Right Interscalene Single Time Out Performed: Yes Date of Procedure: 12/03/22 Procedure Start Time: 07:00 Procedure Stop Time: 07:04 Location of Patient: PreOp Indication: Acute Post-Operative Pain, Requested by Surgeon Sedation Type: Sedate with meaningful contact maintained Preparation: Sterile Prep Position: Supine Needle Types: Pajunk Needle Gauge: 21 Ultrasound used to visualize needle placement: Yes Ultrasound used to observe medication spread: Yes Blood Aspirated: No Pain Paresthesia on Injection Noted: No Resistance on Injection: Normal Image Stored and Saved: Yes Events: Uneventful and Well Tolerated (ropi .5% 20cc plus dexamethasone 4mg)
== END 2022-12-03 10:53 | disposition home or self-care (01) ==
LOC: OR 05:55
PROVIDERS: ATTEND Orthopaedic Surgery
DX: M75.101 Unspecified rotator cuff tear or rupture of right shoulder, not specified as traumatic (principal); M19.011 Primary osteoarthritis, right shoulder; M94.211 Chondromalacia, right shoulder; M75.41 Impingement syndrome of right shoulder; S43.431A Superior glenoid labrum lesion of right shoulder, initial encounter; F12.90 Cannabis use, unspecified, uncomplicated; F41.9 Anxiety disorder, unspecified; Z87.891 Personal history of nicotine dependence; Z79.899 Other long term (current) drug therapy; G89.18 Other acute postprocedural pain; X58.XXXA Exposure to other specified factors, initial encounter
CPT/HCPCS: 64415; 29827; 29824; 29826; C1713 ×2; J2250; J0330; J1100; J0690; J2405; J3010; J2795; J1885; J2704; J2001

== ENCOUNTER → 2023-02-16 | Outpatient (CLI) | payer MEDICARE, BC ==
--- NOTE | 2023-02-16 12:17 | CT ---
EXAMINATION TYPE: CT sinus wo con CT DLP: 558 mGycm, Automated exposure control for dose reduction was used. DATE OF EXAM: 02/16/2023 11:11 AM COMPARISON: CT brain 04/21/2018 . CLINICAL INDICATION:Male, 72 years old with history of J32.0 CHRONIC MAXILLARY SINUSITIS; , Chronic s inusitis TECHNIQUE: Multiple thin axial images were obtained through the paranasal sinuses without the use of IV contrast. Additional coronal and sagittal reformatted images were submitted for evaluation. Contrast used: none Oral contrast used: none FINDINGS: Frontal sinuses: Mild mucosal thickening. Frontal Recess: Patent Maxillary Sinuses: Mild mucosal thickening. Maxillary Infundibula([facility]): Mucosal thickening with narrowing., No Ena cells identified. Ethmoid sinuses: Scattered mild mucosal thickening. Ethmoidal notch: Unprotected bilateral anterior e thmoidal arteries. Sphenoid sinuses: Mild mucosal thickening There is sellar sphenoid sinus pneumatization without evide nce of dehiscence. No dehiscence of carotid canal. No evidence of optic nerve dehiscence within the sphenoid sinus. No evidence of Onodi cells. Sphenoethmoidal recesses: Clear. Nasal septum: Within normal limits.. Nasal Turbinates: Bilateral josé bullosa. Mastoid air cells & middle ears: The air cells are clear. The middle ears are grossly unremarkable. Modified Soft tissues & Brain: Partially seen without gross abnormality. Globes are intact. Other: Cribriform plate demonstrates symmetric Keros classification type 2 cribriform plate. No evidence of bony dehiscence of skull base. Lamina papyracea is intact without evidence of remote orbital fracture or orbital prolapse into the e thmoid sinus. Atherosclerosis of the arterial vasculature. IMPRESSION: 1. Mild paranasal sinus disease. 2. The ostiomeatal units, frontonasal and sphenoethmoidal recesses are patent there is mild narrowing of the ostiomeatal units bilaterally.
== END | disposition home or self-care (01) ==
LOC: RADCTMAIN 10:47
PROVIDERS: ATTEND Otolaryngology
DX: J32.4 Chronic pansinusitis (principal); J32.0 Chronic maxillary sinusitis; J34.89 Other specified disorders of nose and nasal sinuses
CPT/HCPCS: 70486

== ENCOUNTER → 2023-04-15 | Outpatient (CLI) | payer MEDICARE, BC ==
--- NOTE | 2023-04-15 15:43 | MR ---
EXAMINATION TYPE: MR cervical spine wo con DATE OF EXAM: 04/15/2023 COMPARISON: MRI cervical spine 04/03/2020 HISTORY: Pain and stiffness in neck, gonzales, radiculopathy TECHNIQUE: Multiplanar, multisequence images of the cervical spine were acquired without contrast. FINDINGS: Cervical segments are intact. There is normal alignment. Cervical spinal cord is of normal signal. Craniovertebral junction relationships are within normal limits. Multilevel disc desiccation. C2-C3: No disc bulge/herniation or protrusion. No Canal stenosis. Foramina are patent bilaterally. C3-C4: Broad-based disc bulge with mild effacement of the anterior thecal sac. The neural foramen are patent bilaterally. C4-C5: Minimal broad-based disc bulge without significant effacement of the intrathecal sac. Uncovert ebral joint hypertrophy resulting in mild bilateral neural foraminal stenosis. C5-C6: Right foraminal disc protrusion superimposed upon a broad-based disc bulge with severe bilater al neural foraminal stenosis. Mild to moderate central canal stenosis. Similar to prior exam. C6-C7: Broad-based disc bulge with mild effacement of the anterior thecal sac. Uncovertebral joint hy pertrophy. Severe left and moderate right neural foraminal stenosis. Similar to prior exam. C7-T1: No disc bulge/herniation or protrusion. No Canal stenosis. Foramina are patent bilaterally. IMPRESSION: Overall similar examination to prior MRI cervical spine 04/03/2020 with C5-C6 right foraminal disc pro trusion superimposed upon a broad-based disc bulge with mild to moderate central canal stenosis and s evere bilateral neural foraminal stenosis. Additional broad-based disc bulge at C6-C7 with mild centr al canal stenosis. Uncovertebral joint hypertrophy at this level resulting in severe left and moderat e right neural foraminal stenosis.
== END | disposition home or self-care (01) ==
LOC: RADMRIMAIN 14:01
PROVIDERS: ATTEND Family Medicine
DX: M24.811 Other specific joint derangements of right shoulder, not elsewhere classified (principal); M99.71 Connective tissue and disc stenosis of intervertebral foramina of cervical region; M50.123 Cervical disc disorder at C6-C7 level with radiculopathy; M47.22 Other spondylosis with radiculopathy, cervical region; M48.02 Spinal stenosis, cervical region
CPT/HCPCS: 72141